=== PATIENT | female | born 2000 | race Caucasian/White ===

== ENCOUNTER → 2020-11-02 | Outpatient (CLI) | payer OTHER ==
--- NOTE | 2020-11-02 15:47 | REP ---
INDICATION: PREG, DATING. COMPARISON: None. TECHNIQUE: Real-time sonographic evaluation of the gravid uterus performed. FINDINGS: Estimated gestational age is17 weeks 3 days, EDC 04/09/2021. Presentation: Breech Placenta anterior, grade 0, without evidence of placenta previa. heart rate is recorded at 139 beats per minute. Amniotic fluid is subjectively normal. Closed cervical length is measured at 3.1 cm. Biometry chart: BPD: 36 mm, 17 weeks 1 days, 39th percentile. HC: 140 mm, 17 weeks 3 days, 46th percentile AC: 119 mm, 17 weeks 4 days, 53rd percentile Femur length: 25 mm, 17 weeks 4 days, 53rd percentile HC to AC ratio: 1.18, normal range 1.08-1.27. Estimated weight: 199g. anatomy: Anatomical structures are not well visualized due to early gestational age and position. The stomach and bladder are visualized and are grossly unremarkable. IMPRESSION: Viable single intrauterine gestation as above. Extremely limited visualization of anatomy. Follow-up suggested. <Electronically signed by Saúl Kaplan > 11/02/20 [id number]
== END ==
LOC: M RAD 14:15
PROVIDERS: ATTEND Advanced Practice Midwife
DX: Z36.87 Encounter for antenatal screening for uncertain dates (principal); Z3A.17 17 weeks gestation of pregnancy

== ENCOUNTER → 2020-11-30 | Outpatient (CLI) | payer OTHER ==
--- NOTE | 2020-11-30 22:03 | REP ---
INDICATION: PREG, ANATOMY COMPARISON: 11/02/2020 TECHNIQUE: Transabdominal obstetrical ultrasound with color Doppler evaluation. FINDINGS: Examination demonstrates a single live intrauterine in variable presentation. motion is identified by technologist. Placenta is noted anterior and grade 0 without evidence for placenta previa or abruption. Amniotic fluid volume is normal. Cervix measures 3.4 cm in length and appears closed.. Selected gestational age: 21 weeks 3 days with AL 04/09/2021. Gestational age by current measurements 20 weeks 6 days with AL 04/13/2021. FHR equals 145 beats per minute. Estimated weight 388 grams (79thpercentile). Anatomical assessment demonstrates normal structures including cerebral ventricles, choroid plexus, posterior fossa/cerebellum, orbits, nose/lips, heart/ventricular outflow tracts, diaphragm, kidneys and spine.. IMPRESSION: Single live intrauterine in variable presentation demonstrating appropriate estimated weight. In conjunction with prior examination anatomical assessment is complete and normal. <Electronically signed by Mo Harrison > 11/30/20 [id number]
== END ==
LOC: M RAD 13:07
PROVIDERS: ATTEND Advanced Practice Midwife
DX: Z36.2 Encounter for other antenatal screening follow-up (principal); Z3A.21 21 weeks gestation of pregnancy

== ENCOUNTER 2020-12-09 10:21 | Emergency (ER) | payer OTHER ==
[~2020-12-09] VITALS: Ht 170.2 cm; Wt 59.1 kg
[2020-12-09] MEDS ORDERED: PRENTAB53 PO (10:28)
[2020-12-09] MEDS ORDERED: PROM25TA12 PO (10:28)
[2020-12-09 12:21] LABS: BASO # 0.1 10^3/uL (0.0-0.2); BASO % 0.5 % (0.0-1.0); EOS # 0.1 10^3/uL (0.0-0.5); EOS % 0.6 % (0.0-3.0); HEMATOCRIT 39.6 % (36.0-47.0); LYMPH # 1.8 10^3/uL (1.5-5.0); LYMPH % 17.1 % (24.0-44.0); MEAN CORPUSCULAR HEMOGLOBIN 32.3 pg (27.0-33.0); MEAN CORPUSCULAR HGB CONC 35.4 g/dl (32.0-36.5); MEAN CORPUSCULAR VOLUME 91.2 fl (80.0-96.0); MONO # 0.4 10^3/uL (0.0-0.8); MONO % 3.6 % (2.0-8.0); NEUTROPHILS # 8.3 10^3/uL (1.5-8.5); NEUTROPHILS % 77.5 % (36.0-66.0); PLATELET COUNT, AUTOMATED 226 10^3/uL (150-450); RED BLOOD COUNT 4.34 10^6/uL (4.00-5.40); WHITE BLOOD COUNT 10.7 10^3/uL (4.0-10.0)
[2020-12-09 12:31] LABS: INR 0.9; PROTHROMBIN TIME 12.6 SECONDS (12.7-14.5)
[2020-12-09 12:32] LABS: PARTIAL THROMBOPLASTIN TIME 26.1 SECONDS (25.9-37.0)
[2020-12-09 12:52] LABS: ALBUMIN 3.2 GM/DL (3.2-5.2); ALT/SGPT 16 U/L (12-78); BILIRUBIN,TOTAL 0.3 MG/DL (0.2-1.0); BLOOD UREA NITROGEN 7 MG/DL (7-18); CALCIUM LEVEL 8.7 MG/DL (8.5-10.1); CARBON DIOXIDE LEVEL 25 MEQ/L (21-32); CHLORIDE LEVEL 108 MEQ/L (98-107); CREATININE FOR GFR 0.51 MG/DL (0.55-1.30); GLOMERULAR FILTRATION RATE > 60.0 (>60); GLUCOSE, FASTING 83 MG/DL (70-100); POTASSIUM SERUM 4.1 MEQ/L (3.5-5.1); SODIUM LEVEL 137 MEQ/L (136-145); TOTAL PROTEIN 6.5 GM/DL (6.4-8.2)
[2020-12-09 13:53] VITALS: BP 114/58
== END 2020-12-09 13:52 | disposition home or self-care (01) ==
LOC: M ED 10:21
DX: R04.0 Epistaxis (principal); R55 Syncope and collapse; Z3A.21 21 weeks gestation of pregnancy; F90.9 Attention-deficit hyperactivity disorder, unspecified type

== ENCOUNTER 2021-04-12 20:20 | Outpatient (CLI) | payer OTHER ==
[~2021-04-12] VITALS: Ht 170.2 cm; Wt 81.0 kg
[~2021-04-12 20:20] MED LIST: PRENTAB53 PO; PROM25TA12 PO
[2021-04-12 20:45] VITALS: BP 116/70
[2021-04-12] MEDS ORDERED: FAMO20TA PO (21:18)
[2021-04-12] MEDS ORDERED: HOME MED LIST COMPLETE! XX SCH (21:20)
--- NOTE | 2021-04-12 22:09 | IPNPDOC ---
Text Note Date of Service The patient was seen on 04/12/21. NOTE 20 yo at 39+2 weeks gestation presented for discharge and contractions. Denies bleeding or leakage of fluid. Endorses regular movement. Chaperoned by RN Vitals - VSS, afebrile, normotensive, non tachycardic General - AAOX3, sitting up in bed, pleasant and conversant, NAD Abdomen - Gravid uterus. No fundal tenderness Cervix - FT/thick/high, unchanged on exam >1hr apart FHR tracing - Cat I with moderate variability, +accels, no decels. Sporadic ctx on toco. Not in active labor. status reassuring. Discharged home with return precautions. All questions answered. 30 minutes Xander VS,Carli, I+O VS, Carli, I+O Vital Signs Date Time Temp Pulse Resp B/P (MAP) Pulse Ox O2 Delivery O2 Flow Rate FiO2 04/12/21 20:45 98.2 103 18 116/70 (85) DESTINY RIZZO DO Apr 12, 2021 22:09
== END 2021-04-12 22:27 | disposition home or self-care (01) ==
LOC: M LDO 20:20
PROVIDERS: ATTEND Obstetrics & Gynecology
DX: O26.893 Other specified pregnancy related conditions, third trimester (principal); N89.8 Other specified noninflammatory disorders of vagina; O60.03 Preterm labor without delivery, third trimester; Z3A.39 39 weeks gestation of pregnancy
CPT/HCPCS: 59025; G0378; G0463

== ENCOUNTER 2021-04-19 17:54 | Outpatient (CLI) | payer OTHER ==
[~2021-04-19] VITALS: Ht 170.2 cm; Wt 82.6 kg
[~2021-04-19 17:54] MED LIST changes: +FAMO20TA PO
[2021-04-19 18:12] VITALS: BP 111/70
[2021-04-19 20:58] VITALS: BP 113/74
--- NOTE | 2021-04-19 22:18 | IPNPDOC ---
Text Note Date of Service The patient was seen on 04/19/21. NOTE 20 yo at 40+2 weeks gestation presented to L&D with the complaint of painful contractions after having her membranes swept in the office today. She was 3cm dilated in the office. She also endorses some brown spotting but denies any bleeding or leakage of fluid. She endorses regular movement. Chaperoned by RN Vitals - VSS, afebrile, normotensive, non tachycardic General - Laying in bed, AAOX3 Abdomen - Gravid uterus appropriate size for gestational age, no fundal tenderness Cervix - /-2. Exam unchanged ~2 hours later FHR tracing - Cat I with moderate variability, +accels, no decels. Sporadic ctx on toco. Patient not in active labor. Cervix unchanged over serial exams. Reassuring status. Patient discharged home with return precautions. All questions answered. 40 minutes Xander VS,Carli, I+O VS, Carli, I+O Vital Signs Date Time Temp Pulse Resp B/P (MAP) Pulse Ox O2 Delivery O2 Flow Rate FiO2 04/19/21 18:12 97.9 101 18 111/70 (84) 98 Room Air DESTINY RIZZO DO Apr 19, 2021 22:18
[2021-04-20] MEDS ORDERED: ACET500P3 PO (08:34)
== END 2021-04-19 22:10 | disposition home or self-care (01) ==
LOC: M LDO 17:54
PROVIDERS: ATTEND Obstetrics & Gynecology
DX: O47.1 False labor at or after 37 completed weeks of gestation (principal); O26.853 Spotting complicating pregnancy, third trimester; Z3A.40 40 weeks gestation of pregnancy
CPT/HCPCS: 59025; G0378; G0463